=== PATIENT | male | born 1960 | race Two or more races ===

== ENCOUNTER → 2020-03-07 16:30 | Outpatient (CLI) | payer OTHER, SELFPAY ==
[2020-03-07 15:57] VITALS: BMI 20.3
[2020-03-07 18:04] LABS: Absolute Lymphocyte Count 1.88 X10^3/uL (0.83-4.51); Absolute Neutrophil Count 2.8 X10^3/uL (2.0-7.7); Basophil# 0.04 X10^3/uL; Basophil% 0.7 % (0-1); Eosinophil# 0.01 X10^3/uL; Eosinophils% 0.2 % (0-5); Hematocrit 35.5 % (40-54); Hemoglobin 11.2 g/dL (13.0-16.5); Lymphocyte # 1.88 X10^3/ul (4.0); Lymphocyte % 34.9 % (19-41); Mean Corp Hgb Conc 31.5 g/dL (32-36); Mean Corpuscular Hgb 26.5 pg (27.0-32.0); Mean Corpuscular Volume 84.1 fL (80-94); Mean Platelet Vol. 10.2 fl (6.2-12.0); NRBC Flagged by Analyzer 0 % (0-5); Neutrophil # 2.75 X10^3/uL (2.7-7.7); Platelet Count 194 K/mm3 (150-450); RBC Distribution Width CV 18.1 % (11.6-14.6); RBC Distribution Width SD 55.8 fl (35.1-43.9); Red Blood Count 4.22 M/mm3 (4.6-6.2); White Blood Count 5.4 K/mm3 (4.4-11.0)
[2020-03-07 18:16] LABS: Microalbumin,Random Urine 9.8 mg/L (NO RANGE EST.); Microalbumin:Creatinine Ratio 29.3 mg/g CRE (<30 mg/g CRE)
[2020-03-07 18:18] LABS: ALB/GLOB Ratio 1.1 RATIO (0.9-2.4); AST(SGOT) 29 U/L (15-37); Alanine Aminotransfer ALT/SGPT 28 U/L (16-61); Albumin, Serum 3.9 g/dL (3.2-5.0); Alkaline Phosphatase 158 U/L (45-117); Anion Gap 5 (5-15); BUN 11 mg/dL (7-18); BUN/Creat Ratio 14.3 RATIO (10-20); Calcium,Total 8.8 mg/dL (8.5-10.1); Chloride 102 mmol/L (98-107); Cholesterol 158 mg/dL (200); Creatinine, Serum 0.77 mg/dL (0.70-1.30); EST Glomerular Filtration Rate 109 mL/min (>60); Est Glom Filt Rate - Afr Amer 132 mL/min (>60); Globulin 3.4 g/dL (2.2-4.2); Glucose 197 mg/dL (74-106); High Density Lipoprotein 53 mg/dL; Potassium 4.4 mmol/L (3.5-5.1); Protein, Total 7.3 g/dL (6.4-8.2); Rheumatoid Factor < 10.0 IU/mL (<15); Sodium Level 133 mmol/L (136-145); T4 Free Direct 1.31 ng/dL (0.76-1.46); Thyroid Stim Hormone (TSH) 0.89 uIU/mL (0.358-3.74); Triglycerides 206 mg/dL; Very Low Density Lipoprotein 41 mg/dL (5-40)
[2020-03-09 15:04] LABS: ANTINUCLEAR ANTIBODIES DIRECT Negative (Negative)
== END ==
PROVIDERS: PCP Internal Medicine; Referring Provider Nurse Practitioner Family; Visit Provider Nurse Practitioner Family
DX: M06.9 Rheumatoid arthritis, unspecified (principal); E11.9 Type 2 diabetes mellitus without complications; I10 Essential (primary) hypertension; E03.9 Hypothyroidism, unspecified
CPT/HCPCS: 36415; 80053; 80061; 82043; 82570; 84439; 84443; 85025; 86038; 86225; 86235; 86431

== ENCOUNTER → 2020-03-08 11:48 | Outpatient (CLI) | payer OTHER, SELFPAY ==
[2020-03-07 15:57] VITALS: BMI 20.3
--- NOTE | 2020-03-08 11:51 | RAD_ITS ---
STUDY: X-RAY - LEFT FOOT CLINICAL: Male, 60 years old. PAIN. NKI. LTD EXAM D/T CLIN. COND. R.A., ETC. TECHNIQUE: 3 view(s) of the foot. COMPARISON: None. FINDINGS: There is demineralization of the rear and midfoot bones. Normal visualized subtalar, talonavicular, calcaneocuboid, tarsal and tarsometatarsal articulations. There is demineralization of the metatarsi. There is first metatarsal head bunion formation with severe hallux valgus deformity of the first metatarsophalangeal joint. Valgus deformity of the second through fourth metatarsophalangeal joints is also noted. Normal interphalangeal joints and phalanges of the lesser toes. The soft tissue structures are unremarkable. RAD/Foot min 3 Views IMPRESSION: First metatarsal head bunion with severe hallux valgus deformity of the first metatarsophalangeal joint. Valgus deformity of the second through fourth metatarsophalangeal articulations is also noted. There is generalized osteopenia. There is no evidence of fracture, dislocation, or lytic or blastic osseous process. Electronically Signed: Trevon Gomez MD at 16:08 EDT , Service support ,
== END ==
PROVIDERS: PCP Internal Medicine; Referring Provider Nurse Practitioner Family; Visit Provider Nurse Practitioner Family
DX: M79.672 Pain in left foot (principal)
CPT/HCPCS: 73630

== ENCOUNTER → 2020-03-23 08:33 | Outpatient (CLI) | payer OTHER, SELFPAY ==
[2020-03-07 15:57] VITALS: BMI 20.3
--- NOTE | 2020-03-23 08:39 | BD_ITS ---
STUDY: DUAL ENERGY X-RAY ABSORPTIOMETRY / DXA REASON FOR EXAM: Male, 60 years old. DIABETIC- TAKES MEDICATION -- TAKES STEROID MED FOR ARTHRITIS -- TAKES THYROID MED -- TAKES DIURETIC IN BP MED -- DOES LITTLE EXERCISE -- LAY OF 0.5 INCH TECHNIQUE: Bone Mineral Density (BMD) measurements of lumbar spine and bilateral hips were obtained. COMPARISON: None. FINDINGS: Lumbar Spine (L1-L4): g/cm2 (0.928) / T-score (-2.4) / Z-score (-2.0) Findings are suggestive of osteopenia with a high fracture risk. Left Femur Total: g/cm2 (0.885) / T-score (-1.5) / Z-score (-1.0) Left Femoral Neck: g/cm2 (0.840) / T-score (-1.8) / Z-score (-0.8) Right Femur Total: g/cm2 (0.94) / T-score (-0.8) / Z-score (-0.3) Right Femoral Neck: g/cm2 (0.902) / T-score (-1.3) / Z-score (-0.3) BD/Dexa Bone Density Study IMPRESSION: The patient is considered osteopenic as outlined below according to World [place] Organization (WHO) criteria with a high fracture risk. Reference Information: The T-score is the number of standard deviations above or below the standard which is normal for young adults at their peak bone mineral density. The World Health Organization (WHO) interprets the T-scores as follows: Above -1 Normal bone density Between -1 and -2.5 Osteopenia Equal to / or below -2.5 Osteoporosis As a practical clinical guideline, osteopenia may be graded as follows: Mild -1 through -1.5 Moderate -1.6 through -2.0 Severe -2.1 through -2.4 The Z-score is the number of standard deviations above or below age-matched controls. A Z-score of less than -1.5 would be considered abnormal. References: 1. NIH Osteoporosis and Related Bone Diseases www osteo.org 2. International Society for Clinical Densitometry www iscd.org 3. National Osteoporosis Foundation www nof.org Electronically Signed: Vignesh Goldstein, at 10:42 EDT , Service support ,
== END ==
PROVIDERS: PCP Internal Medicine; Referring Provider Nurse Practitioner Family; Visit Provider Nurse Practitioner Family
DX: M85.80 Other specified disorders of bone density and structure, unspecified site (principal); E11.9 Type 2 diabetes mellitus without complications; M19.90 Unspecified osteoarthritis, unspecified site
CPT/HCPCS: 77080

== ENCOUNTER → 2020-03-24 10:06 | Outpatient (CLI) | payer OTHER, SELFPAY ==
[2020-03-24 09:05] VITALS: BMI 20.5
[2020-03-24 13:04] LABS: Ferritin 99 ng/mL (26-388); Iron 79 ug/dL (65-175); Iron Binding Capacity,Total 298 ug/dL (250-450)
--- NOTE | 2020-03-24 14:32 | RAD_ITS ---
HISTORY: inflammatory polyarthropathy ADDITIONAL HISTORY: None provided. EXAMINATION/TECHNIQUE: XR Hand Min 3 Views Right Number of images including paperwork: 3 COMPARISON: None FINDINGS: BONES: No acute fracture. Mineralization appears decreased. JOINTS: No subluxation. Mild to moderate joint space narrowing in the hand and wrist. No erosive changes. SOFT TISSUES: No distinct foreign body. Vascular calcifications. RAD/Hand Min 3 Views IMPRESSION: Degenerative changes without acute osseous abnormality. No definite erosive changes. at 0755 Reported and signed by: Nessa Lord MD Electronically Signed: Nessa Lord MD at 7:55 EDT Tel , Service support ,
--- NOTE | 2020-03-24 14:32 | RAD_ITS ---
HISTORY: inflammatory polyarthropathy ADDITIONAL HISTORY: None provided. EXAMINATION/TECHNIQUE: XR Shoulder Min 2 Views Left Number of images including paperwork: 4 COMPARISON: None FINDINGS: BONES: No acute fracture. Mineralization appears decreased. JOINTS: No subluxation. Minimal degenerative changes of the acromioclavicular and glenohumeral joints. No definite erosive changes. SOFT TISSUES: No distinct foreign body. Sternal wires and surgical clips. RAD/Shoulder min 2 Views IMPRESSION: Degenerative changes without acute osseous abnormality. No definite erosive changes. at 0759 Reported and signed by: Nessa Lord MD Electronically Signed: Nessa Lord MD at 7:58 EDT Tel , Service support ,
--- NOTE | 2020-03-24 14:32 | RAD_ITS ---
HISTORY: inflammatory polyarthropathy ADDITIONAL HISTORY: None provided. EXAMINATION/TECHNIQUE: XR Hand Min 3 Views Left Number of images including paperwork: 3 COMPARISON: None FINDINGS: BONES: No acute fracture. Mineralization appears decreased. JOINTS: No subluxation. Mild to moderate joint space narrowing of the hand and wrist. Slight irregularity of the bases of the proximal phalanges of the second through fifth fingers, possibly healed abrasions. No definite acute erosive changes. No periostitis. SOFT TISSUES: No distinct foreign body. Vascular calcifications. RAD/Hand Min 3 Views IMPRESSION: Degenerative changes without acute osseous abnormality. Possible healed erosions of the bases of the second through fifth proximal phalanges. at 0757 Reported and signed by: Nessa Lord MD Electronically Signed: Nessa Lord MD at 7:56 EDT Tel , Service support ,
--- NOTE | 2020-03-24 14:32 | RAD_ITS ---
HISTORY: inflammatory polyarthropathy ADDITIONAL HISTORY: None provided. EXAMINATION/TECHNIQUE: XR Pelvis 1 or 2 Views Number of images including paperwork: 1 COMPARISON: None FINDINGS: BONES: No acute fracture. JOINTS: No subluxation. Mild degenerative changes of the sacral iliac joints, symphysis pubis and hips. No definite erosive changes. SOFT TISSUES: No distinct foreign body. Vascular calcifications. RAD/Pelvis 1 or 2 Views IMPRESSION: Degenerative changes without acute osseous abnormality. No definite erosive changes. at 0757 Reported and signed by: Nessa Lord MD Electronically Signed: Nessa Lord MD at 7:57 EDT Tel , Service support ,
[2020-03-24 18:16] LABS: Erythrocyte Sedimentation Rate 12 mm/hr (0-20)
[2020-03-27 18:26] LABS: Hepatitis B Surface Antibody Reactive; Hepatitis B Surface Antigen Non-Reactive (Nonreactive); Hepatitis C Antibody Non-Reactive (Nonreactive)
[2020-03-29 20:07] LABS: QNTFERON TB Mitogen Value > 10.00 IU/mL (.); QNTFERON TB Nil Value 0.16 IU/mL (.); QNTFERON TB1+ Ag Value 0.22 IU/mL (.); QNTFERON TB2+ Ag Value 0.17 IU/mL (.)
[2020-03-30 00:12] LABS: CCP IgG Antibodies 5 units (0-19); QNTIFERON TB Positive Criteria Negative (Negative)
== END ==
PROVIDERS: PCP Internal Medicine; Referring Provider Internal Medicine Rheumatology; Visit Provider Internal Medicine Rheumatology
DX: M06.4 Inflammatory polyarthropathy (principal); I10 Essential (primary) hypertension; E11.9 Type 2 diabetes mellitus without complications; E03.9 Hypothyroidism, unspecified; I25.10 Atherosclerotic heart disease of native coronary artery without angina pectoris; D64.9 Anemia, unspecified; E78.5 Hyperlipidemia, unspecified; Z79.899 Other long term (current) drug therapy
CPT/HCPCS: 36415; 72170; 73030; 73130; 82728; 83540; 83550; 85652; 86140; 86200; 86480; 86706; 86803; 87340

== ENCOUNTER 2020-04-24 05:20 | Day surgery (SDC) | payer OTHER, SELFPAY ==
[2020-04-12 13:07] VITALS: BMI 20.5
[2020-04-24] VITALS (14 sets, daily range): BP systolic 87–170; BP diastolic 52–79; PULSE 72–85; RESP 16; TEMP 36.2–36.7; O2SAT 98–100; BMI 19.9
--- NOTE | 2020-04-24 05:50 | PCM.HP.BLA ---
Problem List (1) Anemia Status: Chronic Qualifiers: History and Physical Date of Admission: 04/24/20 Intake Visit Reasons: ANEMIA/ WOUND Chief Complaint: colonoscopy Gauge And Instrument Inspector Required: No Is patient in pain?: No Allergies No Known Allergies Allergy (Verified 04/12/20 13:08) Medications Etoricoxib See Rx Instructions PO .COMPLEX 03/07/20 [History Confirmed 04/12/20] DEAL-D PO 03/07/20 [History Confirmed 04/12/20] cholecalciferol (vitamin D3) 10 mcg (400 unit) capsule 10 mcg PO DAILY 03/07/20 [History Confirmed 04/12/20] ecosprin PO 03/07/20 [History Confirmed 04/12/20] glimepiride 2 mg tablet 2 mg PO DAILY 03/07/20 [History Confirmed 04/12/20] levothyroxine 75 mcg capsule 75 mcg PO DAILY 03/07/20 [History Confirmed 04/12/20] metoprolol succinate 50 mg capsule sprinkle, ext. release 24 hr 50 mg PO DAILY 03/07/20 [History Confirmed 04/12/20] polyethylene glycol 400 0.25 % eye drops % OPHTHALMIC 03/07/20 [History Confirmed 04/12/20] sulfasalazine 500 mg tablet 0.5 g PO BID tab 03/07/20 [History Confirmed 04/12/20] PFSH Medical History (Updated 04/12/20 @ 16:[address] Lavelle Escamilla MD) Wound infection (Acute) Arthritis (Acute) Diabetes (Acute) Heart disease (Acute) High cholesterol (Acute) Thyroid disease (Acute) Hypertension (Chronic) Surgical History (Updated 04/12/20 @ 13:07 by Yenny Feliz) Hx of CABG (Acute) history of GROCERY STOCKER shunt (Acute) Family History Other CVA (cerebral vascular accident) Social History (Updated 04/12/20 @ 16:[address] Lavelle Escamilla MD) Smoking Status: Never smoker alcohol intake: current alcohol intake frequency: a few times a month substance use type: does not use what type of physical activity do you participate in: other details: ROM exercises frequency: daily HPI HPI HPI: KAYE WILKINS, is a 60 M who presents to the office today for who was referred today by Dr. Jason Del Angel for surgical consultation regarding 2 findings. 1 is a mild anemia and the other is drainage from a keloid at sternal wound. A written copy my surgical consult recommendations will be returned to her. The patient is from [place]. He is accompanied by his son today. He speaks Jv and some Barbadian. He has never had a colonoscopy. As noted below he has a very mild anemia with a hemoglobin 11.2. He is on aspirin therapy. He has not noticed any bright red blood per rectum or melena. He has never had a colonoscopy. There is no distinct family history of colon cancer. The patient had coronary bypass surgery performed in [place] in 2008. 2 years ago he had intermittent drainage of purulent material from a couple sites of his keloid midline wound. 03/07/20 [facility], DEPARTMENT OF LABORATORIES PAGE 1 RUN TIME: 0639 Specimen Inquiry [address], [place], [place], [id number] PATIENT: KAYE WILKINS LOC: [facility] U #: [id number] : 1960 AGE/SX: 60/M FACILITY: [facility] ROOM: RE03/07/[address]: LEAH Casper STATUS:REG CLI BED: DIS: ~ SPEC #: [id number] MAHESH: 03/07/20 STATUS: COMP REQ #: [id number] RECD: 03/07/[address]: LEAH Casper ENTERED: 03/07/[address] [facility] [address]: Dr. Jason Del Angel MD ~ Test Result Flag Adult Reference Range CBCD WBC 5.4 4.4-11.0 K/mm3 RBC 4.22 L 4.6-6.2 M/mm3 HGB 11.2 L 13.0-16.5 g/dL HCT 35.5 L 40-54 % MCV 84.1 80-94 fL MCH 26.5 L 27.0-32.0 pg MCHC 31.5 L 32-36 g/dL RDW CV 18.1 H 11.6-14.6 % RDW SD 55.8 H 35.1-43.9 fl PLT 194 150-450 K/mm3 MPV 10.2 6.2-12.0 fl NEUT% 51.0 47-70 % LY% 34.9 19-41 % MONO% 13.0 H 0-10 % EO% 0.2 0-5 % BASO% 0.7 0-1 % IG% 0.200 0.0-0.9 % IG% - Immature Granulocytes (promyelocytes, myelocytes and metamyelocytes) > 1% indicates that a LEFT SHIFT is Present. Absolute Neut 2.8 2.0-7.7 X10^3/uL Absolute Lymph 1.88 0.83-4.51 X10^3/uL NUCLEATED RBC 0 0-5 % 03/07 [facility], DEPARTMENT OF LABORATORIES PAGE 1 RUN TIME: 0640 Specimen Inquiry [address], [place], [address] PATIENT: KAYE WILKINS LOC: [facility] U #: [id number] : 1960 AGE/SX: 60/M FACILITY: [facility] ROOM: RE03/07/[address]: LEAH Casper STATUS:REG CLI BED: DIS: ~ SPEC #: [id number] MAHESH: 03/07/20 STATUS: COMP REQ #: [id number] RECD: 03/07/[address]: LEAH Casper ENTERED: 03/07/[address]: Dr. Jason Del Angel MD ~ Test Result Flag Adult Reference Range COMP METABOLIC LIPID GLU 197 H 74-106 mg/dL Fasting Glucose result greater than or equal to 126 mg/dL suggests DIABETES MELLITUS per A.D.A. criteria. Please note revised GLUCOSE reference range effective 07/04/2017. BUN 11 7-18 mg/dL CREAT,SERUM 0.77 0.70-1.30 mg/dL The validity of the calculated GFR & GFRAA in patients over 70 years has not been determined. Clinical correlation is essential. EST GFR 109 >60 mL/min Non- GFR Calc EST GFR - AA 132 >60 mL/min GFR Calc BUN/CRE 14.3 10-20 RATIO T PROT 7.3 6.4-8.2 g/dL ALB 3.9 3.2-5.0 g/dL GLOB 3.4 2.2-4.2 g/dL A/G 1.1 0.9-2.4 RATIO CA,Total 8.8 8.5-10.1 mg/dL AST 29 15-37 U/L ALK P 158 H 45-117 U/L ALT 28 16-61 U/L T BILI 0.50 0.20-1.00 mg/dL For patients on eltrombopag therapy, use of Dimension [place] TBIL is not recommended. CHOL 158 200 mg/dL <200 mg/dL Desirable 200-240 mg/dL Borderline >240 mg/dL High Risk TRIG 206 H mg/dL The drugs N-Acetylcysteine and Metamizole may falsely depress this assay. Serum Triglycerides Reference Interval Normal <150 mg/dL Borderline high 150 - 199 mg/dL High 200 - 499 mg/dL Very High > or = 500 mg/dL NA 133 L 136-145 mmol/L Potassium 4.4 3.5-5.1 mmol/L CL 102 98-107 mmol/L CO2 26.0 21.0-32.0 mmol/L GAP 5 5-15 HDL 53 mg/dL The drugs N-Acetylcysteine and Metamizole may falsely depress this assay. Reference Range HDL <40 mg/dL Low HDL Cholesterol HDL >or= 60 mg/dL High HDL Cholesterol LDL 64 0-130 mg/dL VLDL 41 H 5-40 mg/dL TSH 0.89 0.358-3.74 uIU/mL RHEUMATOID FAC < 10.0 <15 IU/mL T4 FREE DIRECT 1.31 0.76-1.46 ng/dL HPI HPI HPI: KAYE WILKINS, is a 60 M who presents to the office today for ROS General General: Yes weight change; no appetite, fatigue, colon cancer, breast cancer or weakness HEENT HEENT: Yes eye injury; no difficulty swallowing, eye surgery, swollen glands or hoarseness Endo Endocrine: Yes thyroid disease and diabetes mellitus; no thyroid cancer, Hair loss, heat intolerance or cold intolerance Musc Musculoskeletal: Yes arthritis and rheumatoid arthritis; no back problems, gout or joint pain Cardio Cardiovascular: Yes high blood pressure and heart attack; no murmur, pacemaker, heart disease, atrial fibrillation, heart stent, palpitations, shortness of breat with exertion or chest pain Psych Psychiatric: No depression, anxiety or hearing voices Resp Respiratory: No shortness of breath, No sleep apnea, Yes cough, No COPD, No asthma, No emphysema, No wheezing Gastro Gastrointestinal: No abdominal pain, No nausea or vomiting, No diarrhea, No constipation, No blood in stool, Yes acid reflux, No hemorrhoids, No ulcers, No gallbladder problem, No black,tarry stools [place] Hematologic: Yes blood thinners, No blood disorders, No bleeding, No anemia, No blood clots Neuro Neurologic: No weakness Exam Const General: cooperative, healthy appearing, comfortable, no acute distress Nutritional Appearance: average body habitus Orientation: alert, awake [facility] Head: normal to inspection Eyes General: appearance normal, both eyes and all related structures Chest Other: Median sternotomy. Heavily keloid wound. Left superior mid 1 cm ulceration with purulent discharge from beneath. Right inferior scar similar type of superficial ulceration with expressible purulence. Resp Effort & Inspection: normal respiratory effort Auscultation: clear to auscultation bilaterally Cardio Rate: regular rate Rhythm: regular rhythm Heart Sounds: no murmurs GI Palpation: soft, no hepatosplenomegaly Auscultation: normal bowel sounds Musc Cervical Spine: normal cervical lordosis Neuro Cognition: normal cognition Extrem General: no calf tenderness Psych Affect: normal affect Assessment & Plan Problems 1. Anemia, unspecified type D64.9 2. Wound infection T14.8XXA; L08.9 Plan Patient has a mild anemia. Has never had a colonoscopy. He has not noticed any bright red blood per rectum or melena. He speaks Jv. His sons provides translation. I recommend to him a combined esophagogastroduodenoscopy with possible biopsy and colonoscopy with possible biopsy or polypectomy as indicated. I described the technique, benefit, risk of alternatives. I believe that this would be most likely to provide a definitive answer as toward a potential source for blood loss. Patient had coronary bypass surgery 2008. Within the past 2 years he has had intermittent purulent drainage from 2 spots in the midline wound. The wound is heavily keloid it. It is not clear whether this represents folliculitis or pilonidal type disease versus a potential for retained foreign body from the median sternotomy. Regarding the wound I recommend to them that they consider in the office under local anesthesia a debridement of both of the areas that are draining. Cultures could then be obtained at that time. Careful inspection for possible retained foreign body or possible ingrown hair. Then pending the findings of that debridement could decide whether the patient would need to return to cardiothoracic surgery or potentially require more aggressive sternal bone debridement or plastic surgery referral. He is not yet committed to how he would like to proceed with the sternal wound that is draining. They are willing to proceed with scheduling for the endoscopy. We will schedule proceed at his discretion. I very much appreciate the kind opportunity of assisting with his surgical care. Copy: Dr. Jason Escamilla M.D., F.A.C.S. Plan Detail Barriers Language barrier Coding Level of Care Code 54519 Diagnoses Anemia, unspecified type D64.9 ??Anemia type: unspecified type Wound infection T14.8XXA; L08.9 I have re-examined the patient. There are no clinical changes since date of exam.
[2020-04-24] MEDS: Lactated Ringers 1,000 ML 100 ML IV ×2 (06:06→07:07)
--- NOTE | 2020-04-24 06:30 | IMM_PTH ---
PATIENT: KAYE WILKINS LOC: [facility] U#:[id number] AGE/SX: 60/M ROOM: RE04/24/[address]: Dr. Lavelle Escamilla MD : 1960 BED: DIS: 04/24/2020 SPEC #: [id number] RECD: 04/24/20 14:58 STATUS: JANE REBrennan #: [id number] MAHESH: 04/24/20 06:[address]: Lavelle Escamilla DEPT: IMMUNOHISTOCHEMISTRY RECD BY: Marley Covarrubias ENTERED: 04/24/20 14:58 SP TYPE: IMMUNO OTHR DR: Dr. Jason Del Angel MD Tissues: A - Stomach, NOS Procedures: H Pylori (initial) PHYSICIAN & INSTITUTION [place] [address] SPECIMEN INFORMATION: Tissue Source: A - Antrum biopsy Clinical Info: Anemia Specimen Number: [id number] CPT code: 75008 METHODOLOGY: Deparaffinized sections of prefer/formalin-fixed tissue or PAP/DQ stained slides are incubated with monoclonal/polyclonal antibodies/oligonucleotide probes. Localization is made via biotin free immunoperoxidase method. Appropriate controls are performed and reacted as expected. Results on target cell population are indicated in the following table: RESULTS: ANTIBODY / CLONE RESULT Block A H Pylori (polyclonal) negative These tests were developed and their performance characteristics determined by [facility]. They may not have been cleared or approved by the U.S. Food and Drug Administration. The FDA has determined that such clearance or approval is not necessary. INTERPRETATION: A. Antrum biopsy: Negative for Helicobacter pylori organisms. AM:lisa 04/25/20
--- NOTE | 2020-04-24 06:30 | EGD_PTH ---
PATIENT: KAYE WILKINS LOC: [facility] U#:[id number] AGE/SX: 60/M ROOM: RE04/24/[address]: Dr. Lavelle Escamilla MD : 1960 BED: DIS: 04/24/2020 SPEC #: [id number] RECD: 04/24/20 13:20 STATUS: JANE KEDAR #: [id number] MAHESH: 04/24/20 06:[address]: Lavelle Escamilla DEPT: SURGICAL PATHOLOGY RECD BY: Alma Turcios ENTERED: 04/24/20 13:53 SP TYPE: EGD BIOPSY OT DR: Dr. Jason Del Angel MD Tissues: A - Gastric mucous membrane B - Esophagus, NOS C - Esophagus, NOS Procedures: Special Stain Group II Surgery Specimen Level IV Alcian Blue/PAS (control) HEADER OPERATION: Colonoscopy, EGD (MOD) PRE-OP DIAGNOSIS: Anemia TISSUE SUBMITTED: A - Antrum biopsy for histo and H. pylori, B - Distal esophagus biopsy, C - Mid esophagus biopsy MICROSCOPIC DIAGNOSIS A. Gastric antrum, biopsy: Chronic gastritis. See comment. B. Distal esophagus, biopsy: Focal changes of reflux. Junctional mucosa with mild chronic inflammation. No evidence of goblet cell metaplasia. See comment. C. Mid esophagus, biopsy: Fragment of benign squamous mucosa. No evidence of inflammation. AM:lisa 04/25/20 COMMENT A. The results of immunohistochemistry for Helicobacter pylori will be reported separately ([id number]). B. Alcian blue/PAS stain with matched control supports the above diagnosis. MICROSCOPIC DESCRIPTION Slides are reviewed. GROSS DESCRIPTION A - Received in fixative is one container labeled with the patient's name and designated antrum biopsy. The specimen consists of one irregular fragment of light morales soft tissue that measures 0.6 x 0.3 x 0.1 cm. The specimen is totally submitted in one cassette. B - Received in fixative is one container labeled with the patient's name and designated distal esophagus. The specimen consists of multiple irregular fragments of light morales soft tissue that in aggregate measure 0.7 x 0.2 x 0.1 cm. The specimen is totally submitted in one cassette. C - Received in fixative is one container labeled with the patient's name and designated mid esophagus biopsy. The specimen consists of one irregular fragment of light morales soft tissue that measures 0.3 x 0.2 x 0.1 cm. The specimen is totally submitted in one cassette. / AM:lisa 04/24/20 TC:3 CPT: 31374 x3, 91958
[2020-04-24 06:46] LABS: Bedside Glucose 131 mg/dL (70-110)
--- NOTE | 2020-04-24 07:07 | OP.EGD_ITS ---
Patient Name: Alycia Good Procedure Date: 04/24/2020 6:09 AM Date of : 1960 Age: 60 Procedure: Upper GI endoscopy Indications: Iron deficiency anemia Providers: Lavelle Escamilla MD Referring MD: Jason Del Angel MD Medicines: Midazolam 2 mg IV, Meperidine 75 mg IV Complications: No immediate complications. Procedure: Pre-Anesthesia Assessment: - Prior to the procedure, a History and Physical was performed, and patient medications and allergies were reviewed. The patient's tolerance of previous anesthesia was also reviewed. The risks and benefits of the procedure and the sedation options and risks were discussed with the patient. All questions were answered, and informed consent was obtained. Prior Anticoagulants: The patient has taken no previous anticoagulant or antiplatelet agents. ASA Grade Assessment: II - A patient with mild systemic disease. After reviewing the risks and benefits, the patient was deemed in satisfactory condition to undergo the procedure. After obtaining informed consent, the endoscope was passed under direct vision. Throughout the procedure, the patient's blood pressure, pulse, and oxygen saturations were monitored continuously. The Endoscope was introduced through the mouth, and advanced to the second part of duodenum. The upper GI endoscopy was accomplished without difficulty. The patient tolerated the procedure well. Moderate Sedation: Moderate (conscious) sedation was personally administered by the endoscopist. The following parameters were monitored: oxygen saturation, heart rate, blood pressure, and response to care. Total physician intraservice time was 15 minutes. Scope In: 6:31:54 AM Scope Out: 6:43:23 AM Total Procedure Duration Time 0 hours 11 minutes 29 seconds Findings: LA Grade A (one or more mucosal breaks less than 5 mm, not extending between tops of 2 mucosal folds) esophagitis with no bleeding was found 32 cm from the incisors. Biopsies were taken with a cold forceps for histology. To prevent bleeding post-intervention, one hemostatic clip was successfully placed. There was no bleeding at the end of the procedure. A medium-sized hiatal hernia was present. A mild Schatzki ring was found at the gastroesophageal junction. The mid esophagus was normal. Biopsies were taken with a cold forceps for histology. Diffuse mildly erythematous mucosa without bleeding was found in the gastric antrum. Biopsies were taken with a cold forceps for histology. The examined duodenum was normal. Impression: - LA Grade A reflux esophagitis. Biopsied. Clip was placed because of friability and small defect s/p routine cold forcep biopsy - Medium-sized hiatal hernia. - Mild Schatzki ring. - Normal mid esophagus. Biopsied. - Erythematous mucosa in the antrum. Biopsied. - Normal examined duodenum. Recommendation: - Discharge patient to home. - Clear liquid diet today. - Continue present medications. - Use Prilosec (omeprazole) 40 mg PO daily. - Telephone my office for pathology results in 1 week. Procedure Code(s): --- Professional --- 98289, Esophagogastroduodenoscopy, flexible, transoral; with biopsy, single or multiple 19827, 59, Moderate sedation services provided by the same physician or other qualified health ocular care technician performing the diagnostic or therapeutic service that the sedation supports, requiring the presence of an independent trained observer to assist in the monitoring of the patient's level of consciousness and physiological status; initial 15 minutes of intraservice time, patient age 5 years or older Diagnosis Code(s): --- Professional --- K21.0, Gastro-esophageal reflux disease with esophagitis K44.9, Diaphragmatic hernia without obstruction or gangrene K22.2, Esophageal obstruction K31.89, Other diseases of stomach and duodenum D50.9, Iron deficiency anemia, unspecified CPT copyright 2017 [employer]. All rights reserved. The codes documented in this report are preliminary and upon gunstock spray unit feeder review may be revised to meet current compliance requirements. Lavelle Escamilla MD 04/24/2020 7:06:29 AM This report has been signed electronically. Number of Addenda: 0 Note Initiated On: 04/24/2020 6:09 AM
--- NOTE | 2020-04-24 07:07 | OP.CCLET_ITS ---
04/24/2020 Jason Del Angel MD [address] [place] [address] [place] [address] Re : Upper GI endoscopy procedure for Alycia Good Dear Dr. Del Angel This procedure was performed on Friday, April 24, 2020. My impressions and recommendations are as follows: Impressions : - LA Grade A reflux esophagitis. Biopsied. Clip was placed because of friability and small defect s/p routine cold forcep biopsy - Medium-sized hiatal hernia. - Mild Schatzki ring. - Normal mid esophagus. Biopsied. - Erythematous mucosa in the antrum. Biopsied. - Normal examined duodenum. Recommendations : - Discharge patient to home. - Clear liquid diet today. - Continue present medications. - Use Prilosec (omeprazole) 40 mg PO daily. - Telephone my office for pathology results in 1 week. My findings are described in the full procedure note, which is enclosed. If I can be of further assistance, please feel free to contact me at Doctor phone number(s): Work: . Sincerely, Lavelle Escamilla MD 04/24/2020 7:06:29 AM This report has been signed electronically.
--- NOTE | 2020-04-24 07:08 | OP.COLON_ITS ---
Patient Name: Alycia Good Procedure Date: 04/24/2020 6:43 AM Date of : 1960 Age: 60 Procedure: Colonoscopy Indications: Iron deficiency anemia Providers: Lavelle Escamilla MD Referring MD: Jason Del Angel MD Medicines: Midazolam 0.5 mg IV, Meperidine 25 mg IV Patient Profile: Last Colonoscopy: none. The patient's first colonoscopy is today. Complications: No immediate complications. Procedure: Pre-Anesthesia Assessment: - Prior to the procedure, a History and Physical was performed, and patient medications and allergies were reviewed. The patient's tolerance of previous anesthesia was also reviewed. The risks and benefits of the procedure and the sedation options and risks were discussed with the patient. All questions were answered, and informed consent was obtained. Prior Anticoagulants: The patient has taken no previous anticoagulant or antiplatelet agents. ASA Grade Assessment: II - A patient with mild systemic disease. After reviewing the risks and benefits, the patient was deemed in satisfactory condition to undergo the procedure. After I obtained informed consent, the scope was passed under direct vision. Throughout the procedure, the patient's blood pressure, pulse, and oxygen saturations were monitored continuously. The colonoscope was introduced through the anus and advanced to the cecum, identified by appendiceal orifice and ileocecal valve. The colonoscopy was performed without difficulty. The patient tolerated the procedure well. The quality of the bowel preparation was good. The ileocecal valve and the appendiceal orifice were photographed. Moderate Sedation: Moderate (conscious) sedation was administered by the endoscopy nurse and supervised by the endoscopist. The following parameters were monitored: oxygen saturation, heart rate, blood pressure, and response to care. Total physician intraservice time was 15 minutes. Scope In: 6:45:21 AM Scope Withdrawal Time 0 hours 6 minutes 30 seconds Scope Out: 6:56:58 AM Total Procedure Duration Time 0 hours 11 minutes 37 seconds Findings: Hemorrhoids were found on perianal exam. The digital rectal exam was normal. Pertinent negatives include normal prostate (size, shape, and consistency). The colon (entire examined portion) appeared normal. Impression: - Hemorrhoids found on perianal exam. - The entire examined colon is normal. - No specimens collected. Recommendation: - Discharge patient to home. - Clear liquid diet today. - Continue present medications. - Repeat colonoscopy in 10 years for screening purposes. Procedure Code(s): --- Professional --- 99495, Colonoscopy, flexible; diagnostic, including collection of specimen(s) by brushing or washing, when performed (separate procedure) 99093, 59, Moderate sedation services provided by the same physician or other qualified health health and social care teacher performing the diagnostic or therapeutic service that the sedation supports, requiring the presence of an independent trained observer to assist in the monitoring of the patient's level of consciousness and physiological status; initial 15 minutes of intraservice time, patient age 5 years or older Diagnosis Code(s): --- Professional --- K64.9, Unspecified hemorrhoids D50.9, Iron deficiency anemia, unspecified CPT copyright 2017 [employer]. All rights reserved. The codes documented in this report are preliminary and upon denial management representative review may be revised to meet current compliance requirements. Lavelle Escamilla MD 04/24/2020 7:08:33 AM This report has been signed electronically. Number of Addenda: 0 Note Initiated On: 04/24/2020 6:43 AM
--- NOTE | 2020-04-24 07:09 | OP.CCLET_ITS ---
04/24/2020 Jason Del Angel MD [address] [place] [address] [place] [address] Re : Colonoscopy procedure for Alycia Good Dear Dr. Del Angel This procedure was performed on Friday, April 24, 2020. My impressions and recommendations are as follows: Impressions : - Hemorrhoids found on perianal exam. - The entire examined colon is normal. - No specimens collected. Recommendations : - Discharge patient to home. - Clear liquid diet today. - Continue present medications. - Repeat colonoscopy in 10 years for screening purposes. My findings are described in the full procedure note, which is enclosed. If I can be of further assistance, please feel free to contact me at Doctor phone number(s): Work: . Sincerely, Lavelle Escamilla MD 04/24/2020 7:08:33 AM This report has been signed electronically.
== END 2020-04-24 08:20 | disposition home or self-care (01) ==
LOC: EN 05:21 → AC 05:21
PROVIDERS: PCP Internal Medicine; Referring Provider Internal Medicine; Visit Provider Surgery
PROC: 0DJD8ZZ Inspection of Lower Intestinal Tract, Via Natural or Artificial Opening Endoscopic (ICD-10-PCS; CPT 45378; principal; 2020-04-24 06:25)
DX: K21.00 Gastro-esophageal reflux disease with esophagitis, without bleeding (principal); K44.9 Diaphragmatic hernia without obstruction or gangrene; K22.2 Esophageal obstruction; K31.89 Other diseases of stomach and duodenum; K64.9 Unspecified hemorrhoids; D50.9 Iron deficiency anemia, unspecified; E11.9 Type 2 diabetes mellitus without complications; E78.00 Pure hypercholesterolemia, unspecified; E03.8 Other specified hypothyroidism; I10 Essential (primary) hypertension; M06.9 Rheumatoid arthritis, unspecified; M19.90 Unspecified osteoarthritis, unspecified site; Z20.828 Contact with and (suspected) exposure to other viral communicable diseases; Z79.899 Other long term (current) drug therapy; Z79.84 Long term (current) use of oral hypoglycemic drugs; Z79.82 Long term (current) use of aspirin; Z95.1 Presence of aortocoronary bypass graft
CPT/HCPCS: 43239; 45378; 82962; 87426; 88305; 88313; 88342; 99152; 99153; C9803; J7120

== ENCOUNTER → 2020-05-04 | Outpatient (CLI) | payer OTHER, SELFPAY ==
[2020-04-24 05:43] VITALS: BMI 19.9
== END | disposition home or self-care (01) ==
LOC: LABSPEC 09:08
PROVIDERS: PCP Internal Medicine; Referring Provider Internal Medicine; Visit Provider Internal Medicine
DX: Z20.828 Contact with and (suspected) exposure to other viral communicable diseases (principal)
CPT/HCPCS: 87635; C9803; U0003